=== PATIENT | female | born 1995 | race Caucasian/White ===

== ENCOUNTER 2021-02-14 20:04 | Outpatient (CLI) | payer OTHER | END 2021-02-14 22:31 | disposition home or self-care (01) | LOC: GENOP 20:04 | PROVIDERS: Nurse Practitioner Family | DX: O46.93 Antepartum hemorrhage, unspecified, third trimester (principal); Z3A.38 38 weeks gestation of pregnancy | CPT/HCPCS: 59025; 80307 ==